=== PATIENT | male | born 1945 | race Caucasian/White ===

== ENCOUNTER 2020-04-24 09:09 | Emergency (ER) | payer BC, MEDICARE ==
[~2020-04-24] VITALS: Ht 180.3 cm; Wt 117.9 kg
--- NOTE | 2020-04-24 09:57 | NUR ---
PT EFFIE REPORTS NAUSEA IS IMPROVING A LITTLE, REGLAN 10MG IV GIVEN PER ORDER. EKG COMPLETE BY ELSA Gaspar
[2020-04-24] MEDS ORDERED: MECLIZINE HCL25 MG PO (11:51)
--- NOTE | 2020-04-24 12:30 | EKG ---
[facility] [address] [facility] [address] [place] [address] Signed Normal sinus rhythm Normal ECG No previous ECGs available Confirmed by CHEO JENKINS MD ([id number]) on 04/24/2020 12:30:37 PM Electronically Signed By: CHEO JENKINS MD 04/24/20 1230 PATIENT NAME: VICENTA COLLINS Electrocardiogram DATE OF : 41 PHYSICIAN: CHEO JENKINS MD REPORT #: [id number] REPORT IS CONFIDENTIAL AND NOT TO BE RELEASED WITHOUT AUTHORIZATION
[2020-04-24] MEDS ORDERED: TENORMIN25 MG PO (16:19)
[2020-04-24] MEDS ORDERED: GLYBURIDE5 MG PO (16:19)
[2020-04-24] MEDS ORDERED: LISINOPRIL20 MG PO (16:20)
[2020-04-24] MEDS ORDERED: METFORMIN HCL1000 MG PO (16:20)
[2020-04-24] MEDS ORDERED: JANUVIA50 MG PO (16:21)
[2020-04-24] MEDS ORDERED: BAYER CHEWABLE81 MG PO (16:22)
== END 2020-04-24 12:02 | disposition home or self-care (01) ==
LOC: ED 09:09
DX: H81.12 Benign paroxysmal vertigo, left ear (principal); I10 Essential (primary) hypertension; E11.9 Type 2 diabetes mellitus without complications; Z87.891 Personal history of nicotine dependence
CPT/HCPCS: 93005; 93010; 96374; 99284-25; J2765

== ENCOUNTER 2024-12-22 17:59 | Emergency (ER) | payer OTHER, MEDICARE ==
[~2024-12-22] VITALS: Ht 180.3 cm; Wt 95.6 kg
[~2024-12-22 17:59] MED LIST: BAYER CHEWABLE81 MG PO; GLYBURIDE5 MG PO; JANUVIA50 MG PO; LISINOPRIL20 MG PO; MECLIZINE HCL25 MG PO; METFORMIN HCL1000 MG PO; TENORMIN25 MG PO
[2024-12-22] MEDS ORDERED: SILVER SULFADIAZINE 400 GM HOME.PACK TOP ONE (19:15)
[2024-12-22] MEDS ORDERED: TRAMADOL HCL50 MG PO (20:08)
[2024-12-22] MEDS ORDERED: NYSTATIN15 GM TOP (20:11)
[2024-12-22] MEDS ORDERED: TRAMADOL HCL 50 MG HOME.PACK PO ONE (20:15)
[2024-12-22 20:28] VITALS: BP 131/76
== END 2024-12-22 20:28 | disposition home or self-care (01) ==
LOC: ED 17:59
DX: T24.219A Burn of second degree of unspecified thigh, initial encounter (principal); I10 Essential (primary) hypertension; Z87.891 Personal history of nicotine dependence; E11.9 Type 2 diabetes mellitus without complications
CPT/HCPCS: 16020; 99283; A9270

== ENCOUNTER 2025-05-15 08:28 | Inpatient (IN) | payer OTHER, MEDICARE ==
[~2025-05-15] VITALS: Ht 180.3 cm; Wt 103.0 kg
[~2025-05-15 08:28] MED LIST changes: +NYSTATIN15 GM TOP; +TRAMADOL HCL50 MG PO
[2025-05-15 08:55] LABS: BASOPHILS 0.6 % (0.2-1.2); EOSINOPHILS 0.1 % (0.8-7.0); LYMPHOCYTES 3.6 % (21.8-53.1); MCH 30.5 PG (25.7-32.2); MCHC 34.1 g/dL (32.3-36.5); MCV 89.3 fL (79.0-92.2); MONOCYTES 11.1 % (5.3-12.2); NEUTROPHILS 84.0 % (34.0-67.9); RBC 5.25 M/uL (4.63-6.08)
[2025-05-15] MEDS ORDERED: SODIUM CHLORIDE 0.9% 1,000 ML IV ONE (09:00)
[2025-05-15 09:10] LABS: ALT (SGPT) 33.0 U/L (14-59); AST (SGOT) 35.0 U/L (15-37); GLOMERULAR FILTRATION RATE,EST 60.0 mL/min (>60); PROTEIN, TOTAL 7.3 g/dL (6.4-8.2); UREA NITROGEN 15.0 mg/dL (7-18)
[2025-05-15 10:08] LABS: CORONAVIRUS COVID-19 AG POSITIVE (NEGATIVE)
[2025-05-15 11:24] LABS: BLOOD/HGB, URINE LARGE (Negative); KETONE, URINE SMALL (Negative); LEUK ESTERASE, URINE NEGATIVE (negative); NITRITE, URINE NEGATIVE (negative)
[2025-05-15 11:45] LABS: BACTERIA, URINE NONE SEEN /hpf (negative); CASTS, URINE NONE SEEN \\lpf; CRYSTALS, URINE URIC ACID 3+ (0-1+); EPITHELIAL CELLS, URINE 0 /lpf (0-1+); REFLEX CULTURE, URINE No (No)
[2025-05-15] MEDS ORDERED: POLYETHYLENE GLYCOL 3350 1 PACKET PO SCH (12:53)
[2025-05-15 14:30] VITALS: BP 130/75
--- NOTE | 2025-05-15 14:46 | NUR ---
PATIENT ADMITTED TO MED SURG. PATIENT IS 98% ON ROOM AIR, ENDORSES FEELING WEAK FOR THE PAST WEEK. PATIENT SAID THAT HE LIVES WHERE THERE IS A FLIGHT OF STAIRS AND THIS IS DIFFICULT FOR HIM, BUT THAT HE WAS MOVING SOON. PATIENT DENIES NAUSEA, IS HAVING SNACKS AND ICE WATER. VITALS ARE STABLE, PATIENT IS A/O AND ABLE TO USE CALL LIGHT. TELE WITH OXIMETER IS ON. NO OTHER NEEDS AT THIS TIME.
[2025-05-15 15:00] VITALS: BP 130/75
--- NOTE | 2025-05-15 16:08 | NUR ---
Patient awake, alert and oriented x3, no acute distress. CPOX in place, sp02 98% on room air, respirations non labored. Patient denies shorness of breath. Per patient, he has been having a dry cough, weakness and diarrhea for several days now. Bed alarm intact, call light within reach. Fresh water provided to patient.
[2025-05-15] MEDS ORDERED: IBLOOD GLUCOSE TEST STRIP 1 EA TEST VI SCH (17:00)
[2025-05-15] MEDS ORDERED: INSULIN LISPRO 100 UNIT/ML ML SUB-Q SCH (17:00)
[2025-05-15 17:43] VITALS: BP 150/80
[2025-05-15 17:47] VITALS: BP 150/80
--- NOTE | 2025-05-15 17:47 | NUR ---
Patient awake eating dinner, no acute distress. Vital signs stable, respirations non labored. Personal supplies and call light within reach.
--- NOTE | 2025-05-15 19:37 | NUR ---
REPORT RECEIVED FROM DAY SHIFT RN. PT RESTING IN BED. SAFETY PRECAUTIONS MAINTAINED. CALL LIGHT WITHIN REACH. WILL CONTINUE TO MONITOR.
[2025-05-15 20:38] VITALS: BP 123/68
[2025-05-15 20:50] VITALS: BP 123/68
--- NOTE | 2025-05-15 20:50 | NUR ---
PT ASSESSED AND SLIDING SCALE INSULIN GIVEN FOR A BS OF 177. VSS. PT SATING WELL ON RA, TELE READING ST. PT STATED THAT THEY ARE NOT IN ANY PAIN OR DISCOMFORT. ISOLATION PRECAUTIONS MAINTAINED. SAFETY PRECAUTIONS MAINTAINED. CALL LIGHT WITHIN REACH. WILL CONTINUE TO MONITOR.
[2025-05-16] VITALS (11 sets, daily range): BP systolic 93–130; BP diastolic 53–71
[2025-05-16 05:24] LABS: BASOPHILS 0.6 % (0.2-1.2); EOSINOPHILS 0 % (0.8-7.0); LYMPHOCYTES 10.5 % (21.8-53.1); MCH 29.9 PG (25.7-32.2); MCHC 33.5 g/dL (32.3-36.5); MCV 89.4 fL (79.0-92.2); MONOCYTES 16.8 % (5.3-12.2); NEUTROPHILS 71.7 % (34.0-67.9); RBC 4.98 M/uL (4.63-6.08)
[2025-05-16 05:35] LABS: GLOMERULAR FILTRATION RATE,EST 87.0 mL/min (>60); UREA NITROGEN 11.0 mg/dL (7-18)
--- NOTE | 2025-05-16 06:14 | NUR ---
PT WAS AWAKE MOST OF THE SHIFT. VSS. O2 AT 1L NC APPLIED DURING THE SHIFT DUE TO O2 SAT BEING IN THE HIGH 80'S. PT SATING WELL ON O2 AT 1L NC. TELE READING ST. PT USING URINAL AT BEDSIDE, MODERATE OUTPUT NOTED. SAFETY PRECAUTIONS MAINTAINED. CALL LIGHT WITHIN REACH. WILL CONTINUE TO MONITOR.
--- NOTE | 2025-05-16 08:12 | NUR ---
UR CLINICAL REVIEW: MCG-PER MCG REVIEW MEETS INPT FOR COVID 19 WITH NEED FOR SUPPLEMENTAL OXYGEN PER [facility] INPT 05/15/25 @ 1253 ORDER MATCHES REG NO AUTH REQUIRED PER [facility] GUIDELINES. CLINICALS FAXED PER REQUEST DISCHARGE TO HOME WHEN STABLE PENDING PT/OT
[2025-05-16] MEDS ORDERED: PANTOPRAZOLE SODIUM 40 MG TABEC PO SCH (09:00)
--- NOTE | 2025-05-16 09:18 | NUR ---
ALERT AND ORIENTED IN BED. PLAYING ON TABLET WHILE SPEAKING WITH NURSE SO ANSWERS TAKE HIM A BIT OF TIME TO GIVE. DEMOGRAPHICS VERIFIED WITH PATIENT. HIS PCP IS NO LONGER DR. SALAZAR, STATES HE IS STILL SEEN AT [facility] BUT CAN NOT REMEMBER PHYSICIAN'S NAME WHO IS OBTAINING HIS CARE. HE LIVES IN A TRIPLEX WITH A ROOMMATE. STATES HE HAS A FLIGHT OF STAIRS WITH A HANDRAIL TO GET INTO HIS HOME. HE HAS A WALKER, CANE AND SHOWER CHAIR. HE DRIVES AT [place]. HE STATES HE HAS SOME FINANCIAL HARDSHIP AT TIMES BUT HAS FOOD STAMPS AND THEY SEEM TO GET HIM BY. DISCUSSED POTENTIAL NEED FOR HOME HEALTH PT/OT VS. SNF IF NEEDED. DOES NOT DISAGREE TO ANY NEEDS. INFORMED HIM THIS NURSE WILL RETURN TO DISCUSS OPTIONS AFTER PT/OT EVAL HIM.
--- NOTE | 2025-05-16 10:24 | NUR ---
PATIENT REQUESTS SNF PLACEMENT IN [facility] IF BED IS OPEN. SPOKE WITH OLIVIA, PATIENT'S FRIEND, UPDATED HIM. HIS CONCERN IS PATIENT IS HAVING INCREASING WEAKNESS AND HE KNOWS PATIENT DOES NEED MORE HELP. BOTH ARE IN AGREEANCE WITH [facility]. REFERRAL FOR SNF FAXED.
--- NOTE | 2025-05-16 11:13 | NUR ---
Patient assited to chair with physical therapy. Patient demonstrated proper iss use with morning assessment, pt instructed to use hourly. Patient denies sob and or chest pain. Vital signs stable, sp02 93% on room air. Patient reports feeling weak this morning. Encouraged patient to drink lots of fluids, fresh water at bedside. Chair alarm in place.
--- NOTE | 2025-05-16 11:45 | NUR ---
REPORT RECIEVED FROM MARIUM LIU. PATIENT SITTING UP IN HIS CHAIR WATCHING TV. PATIENT WITHOUT ANY NEEDS AT THIS TIME. CALL LIGHT AND PERSONAL BELONGINGS ARE WITHIN REACH.
--- NOTE | 2025-05-16 11:49 | NUR ---
SNF REFERRAL FAXED TO [facility]
[2025-05-16] MEDS ORDERED: PHARMACY RENAL DOSE ADJUSTMENT 1 DOSE MISC PO SCH (12:00)
--- NOTE | 2025-05-16 12:00 | NUR ---
PATIENT BLOOD GLUCOSE IS 211 AND LUNCH TRAY IS PROVIDED.
--- NOTE | 2025-05-16 12:15 | NUR ---
PATIENT MEDICATED PER EMAR. PATIENT ASSISTED TO SITTING UP RIGHT IN HIS CHAIR TO EAT LUNCH. FRESH BEDDING PROVIDED. FRESH ICE WATER PROVIDED. PATIENT WITHOUT FURTHER NEEDS. CALL LIGHT AND PERSONAL BELONGINGS ARE WITHIN REACH.
--- NOTE | 2025-05-16 13:15 | NUR ---
PATIENT TRANSFERED BACK TO BED VIA TWO PERSON ASSIST WITH THE FWW. PATIENT TOLERATED WELL. MOR BAPTISTE IN ROOM OBTAINING VITAL SIGNS. PATIENT WITHOUT FURTHER NEEDS AT THIS TIME. CALL LIGHT AND PERSONAL BELONGINGS ARE WITHIN REACH.
--- NOTE | 2025-05-16 14:37 | NUR ---
PATIENT RESTING IN BED ON HIS RIGHT SIDE WITH HIS EYES CLOSED. EVEN AND UNLABORED RESPIRATIONS NOTED. CALL LIGHT AND PERSONAL BELONGINGS ARE WITHIN REACH.
--- NOTE | 2025-05-16 14:41 | NUR ---
[facility] UNABLE TO ACCEPT COVID POSITIVE PATIENT AT THIS TIME. SNF REFERRAL SENT TO [facility] FOR REVIEW
--- NOTE | 2025-05-16 15:33 | NUR ---
PATIENT RESTING IN BED ON HIS BACK WITH HIS EYES CLOSED, EVEN AND UNLABORED RESPIRATIONS NOTED. CALL LIGHT AND PERSONAL BELONGINGS ARE WITHIN REACH.
--- NOTE | 2025-05-16 15:38 | NUR ---
REFERRAL FAXED TO [facility]
--- NOTE | 2025-05-16 16:33 | NUR ---
UPDATED PATIENT THAT [facility] DOES NOT HAVE A BED. HE IS OK WITH [facility] OR [facility] SINCE THEY ARE NEXT CLOSEST FACILTIES.
--- NOTE | 2025-05-16 17:25 | NUR ---
PATIENT MEDICATED PER EMAR. PATIENT POSITIONED WITH HOB ELEVATED FOR DINNER. URINAL EMPTIED, FRESH ICE WATER PROVIDED. PATIENT WITHOUT FURTHER NEEDS AT THIS TIME. CALL LIGHT AND PERSONAL BELONGINGS ARE WITHIN REACH.
--- NOTE | 2025-05-16 18:04 | EKG ---
[facility] [address] [place], [place] [address] Signed Sinus tachycardia Otherwise normal ECG When compared with ECG of 24-APR-2020 09:54, No significant change was found Confirmed by MARIAM CORDOVA MD ([id number]) on 05/16/2025 6:04:34 PM Electronically Signed By: MARIAM CORDOVA 05/16/25 1804 PATIENT NAME: VICENTA COLLINS Electrocardiogram DATE OF : 41 PHYSICIAN: MARIAM CORDOVA REPORT #: [id number] REPORT IS CONFIDENTIAL AND NOT TO BE RELEASED WITHOUT AUTHORIZATION
--- NOTE | 2025-05-16 18:16 | NUR ---
PATIENT SITTING UP IN BED WATCHING TV. PATIENT WITHOUT ANY NEEDS AT THIS TIME. CALL LIGHT AND PERSONAL BELONGINGS ARE WITHIN REACH.
--- NOTE | 2025-05-16 19:37 | NUR ---
PATIENT IN BED, EYES OPEN, CHEST RISE EVEN AND UNLABORED. CALL LIGHT AND PERSONAL BELONGINGS IN REACH OF PATIENT. REPORT RECEIVED FROM MYA CAUSEY.
--- NOTE | 2025-05-16 20:57 | NUR ---
IT INSTRUCTOR OBTAINED VITALS AND I&O. PT STATES NO NEEDS AT THIS TIME. CALL LIGHT WITHIN REACH.
--- NOTE | 2025-05-16 22:00 | NUR ---
PATIENT IN BEDWITH HOB RAISED, EYES OPEN, CHEST RISE EVEN AND UNLABORED. SCHEDULED MEDICATIONS ADMINISTERED. ASSESMENT COMPLETED. IV NOT PATENT, REMOVED. NEW IV PLACED BY LUCI CAUSEY. PATIENT DENIES CONCERNS AT THIS TIME. CALL LIGHT AND PERSONAL BELONGINGS IN REACH OF PATIENT.
--- NOTE | 2025-05-16 23:54 | NUR ---
PATIENT IN BED, EYES OPEN, CHEST RISE EVEN AND UNLABORED. PATIENT DENIES CONCERNS AT THIS TIME. CALL LIGHT AND PERSONAL BELONGINGS IN REACH OF PATIENT.
[2025-05-17] VITALS (12 sets, daily range): BP systolic 96–113; BP diastolic 52–63
--- NOTE | 2025-05-17 00:09 | NUR ---
PATIENT IN BED, EYES OPEN, CHEST RISE EVEN AND UNLABORED. PATIENT'S OXYGEN SATURATION IS 89%, PATIENT PLACED ON 1 LITER O2 VIA NASAL CANNULA. O2 SATURATION NOW 94%. PATIENT TELE BATTERY REPLACED. CALL LIGHT AND PERSONAL BELONGINGS IN REACH OF PATIENT. PATIENT DENIES CONCERNS AT THIS TIME.
--- NOTE | 2025-05-17 01:51 | NUR ---
PATIENT IN BED, EYES CLOSED, CHEST RISE EVEN AND UNLABORED. ASSESMENT, I AND O, MEWS, AND VITAL SIGNS COMPLETED. PATIENT DENIES CONCERNS AT THIS TIME. CALL LIGHT AND PERSONAL BELONGINGS IN REACH OF PATIENT. PATIENT DENIES CONCERNS AT THIS TIME.
--- NOTE | 2025-05-17 04:20 | NUR ---
PATIENT IN BED WITH EYES CLOSED, CHEST RISE EVEN AND UNLABORED. CALL LIGHT AND PERSONAL BELONGINGS IN REACH OF PATIENT. NO APPARENT NEEDS NOTED AT THIS TIME.
--- NOTE | 2025-05-17 05:48 | NUR ---
PATIENT IN BED, EYES OPEN, CHEST RISE EVEN AND UNLABORED. VITAL SIGNS AND MEWS COMPLETED. PATIENT DENIES CONCERNS AT THIS TIME. CALL LIGHT AND PERSONAL BELONGINGS IN REACH OF PATIENT. CPOX AND TELE IN PLACE.
--- NOTE | 2025-05-17 07:25 | NUR ---
REPORT RECEIVED FROM CLINICAL THERAPIST RN JOHN. PATIENT IS LYING IN BED WITH EYES CLOSED AND RESPIRATIONS ARE EVEN AND UNLABORED. PATIENT WITH 1L NC IN PLACE WITH THE CPOX AT BEDSIDE. CALL LIGHT AND PERSONAL BELONGINGS ARE WITHIN REACH.
--- NOTE | 2025-05-17 07:57 | NUR ---
PATIENT IN BED AT THIS TIME. SURGICAL SERVICES MANAGER CHARTED BLOOD SUGAR AND HOURLY ROUNDS. CALL LIGHT WITHIN REACH, NO FURTHER NEEDS.
--- NOTE | 2025-05-17 08:17 | NUR ---
MED REC COMPLETE
--- NOTE | 2025-05-17 08:30 | NUR ---
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
--- NOTE | 2025-05-17 08:53 | NUR ---
MD GAVE VERBAL ORDER TO SENIOR SALES DIRECTOR TO CONTINUE WITH ATENOLOL AND LISINOPRIL ADMINISTRATION WITH MOST RECENT VITAL SIGNS.
--- NOTE | 2025-05-17 09:30 | NUR ---
PATIENT IS LYING IN BED WITH HOB ELEVATED. PATIENT WITH EYES OPEN AND RESPIRATIONS ARE EVEN AND UNLABORED. VITAL SIGNS AND INTAKE AND OUTPUT VALUES TAKEN AND DOCUMENTED IN THE CHART. BLOOD PRESSURE IS LOW. MARIUM OVALLES IS VERIFYING WITH TO CONTINUE WITH ATENOLOL AND LISINIPRIL ADMINISTRATION. PATIENT STATED NO FURTHER NEEDS AT THIS TIME. CALL LIGHT AND PERSONAL BELONGINGS ARE WITHIN REACH.
--- NOTE | 2025-05-17 09:33 | NUR ---
GAVE MARIUM OVALLES VERBAL ORDER TO CONTINUE MEDICATION ADMINISTRATION. THIS RN ADMINITERED MEDICATIONS AT THIS TIME.
--- NOTE | 2025-05-17 10:06 | NUR ---
PT LAYING IN BED WITH EYES CLOSED; RR EVEN AND UNLABORED. CALL LIGHT AND PERSONAL BELONGINGS ARE WITHIN REACH.
--- NOTE | 2025-05-17 11:10 | NUR ---
PATIENT IS LYING IN BED WITH EYES CLOSED AND RESPIRATIONS ARE EVEN AND UNLABORED. PATIENT REMAINS ON ROOM AIR. CALL LIGHT AND PERSONAL BELONGINGS ARE WITHIN REACH.
--- NOTE | 2025-05-17 11:29 | NUR ---
UPDATES SENT TO [facility] AND [facility].
--- NOTE | 2025-05-17 11:44 | NUR ---
PT NOT AVAILABLE FOR VISIT. PROVIDED PRAYER.
--- NOTE | 2025-05-17 11:53 | NUR ---
PATIENT IN BED AT THIS TIME. CUPOLA TAPPER CHARTED VITALS AND I&O'S. CALL LIGHT WIHTIN REACH, NO FURTHER NEEDS.
--- NOTE | 2025-05-17 12:13 | NUR ---
PATIENT IS LYING IN BED WITH HOB ELEVATED. PATIENT WITH EYES OPEN AND RESPIRATIONS ARE EVEN AND UNLABORED. MARIUM OVALLES IS IN THE ROOM AT THIS TIME. CALL LIGHT AND PERSONAL BELONGINGS ARE WITHIN REACH.
--- NOTE | 2025-05-17 12:36 | NUR ---
PATIENT LYING IN BED, KNITTER WIRE MESH'Hafsa JUAREZ CHECKED BLOOD SUGAR. PATIENT LEFT WITH CALL LIGHT CLOSE BY.
--- NOTE | 2025-05-17 13:11 | NUR ---
PT IS SITTING UP IN BED, HAS JUST FINISHED LUNCH. LUNCH TRAY REMOVED, ICE BROUGHT PER PT REQUEST. PT DENIES ANY FURTHER NEEDS AT THIS TIME. CALL LIGHT AND PERSONAL BELONGINGS ARE WITHIN REACH.
--- NOTE | 2025-05-17 13:49 | NUR ---
PATIENT IN BED AT THIS TIME. ESOL TEACHER ASSISTANT CHARTED VITALS AND I&O'S. ESOL TEACHER ASSISTANT OFFERED PATIENT BED BATH AT 1530, PATIENT AGREED. CALL LIGHT WITHIN REACH, NO FURTHER NEEDS.
--- NOTE | 2025-05-17 14:07 | NUR ---
PT IS LAYING IN BED WITH EYES CLOSED, RR IS EVEN AND UNLABORED. CALL LIGHT AND PERSONAL BELONGINGS ARE WITHIN REACH.
--- NOTE | 2025-05-17 14:15 | NUR ---
CHART FAXED TO [facility]. CB SALES DENIED CHART DUE TO NOT HAVING ANY PRIVATE ROOMS AVAILABLE.
--- NOTE | 2025-05-17 14:15 | NUR ---
LPAR DENIED PATIENT DUE TO NO PRIVATE ROOMS.
--- NOTE | 2025-05-17 15:19 | NUR ---
PATIENT IS SITTING IN THE CHAIR WITH BILATERAL LOWER EXTREMITIES ELEVATED. PHYSICAL THERAPY FINISHED WORKING WITH THE PATIENT AT THIS TIME. MOR BORGES AND MOR BURLESON ARE ASSISTING PATIENT WITH A BED BATH AND PLACING A MALE PUREWICK AT THIS TIME. PATIENT WITH NO COMPLAINTS OF PAIN. PATIENT IS ON ROOM AIR AND LUNG SOUNDS ARE DIMINISHED THROUGHOUT. IV SITE FLUSHED WITH 10 ML NORMAL SALINE AND IS SALINE LOCKED. IV DRESSING IS CLEAN, DRY, AND INTACT. CARDIAC WITH NORMAL S1 AND S2 ON AUSCULTATION. PATIENT AND FILTER TIP CATCHER'S STATED NO FURTHER NEEDS AT THIS TIME. CALL LIGHT AND PERSONAL BELONGINGS ARE WITHIN REACH.
--- NOTE | 2025-05-17 15:33 | NUR ---
MACHINE PAINT MIXER'S BENJY AND JONY ASSISTED PATIENT WITH CHANGING SOILED DIAPER, PROVIDED MATHEW CARE AND ATTACHED EXTERNAL CATHETER. CALL LIGHT LEFT WITHIN REACH AND PATIENT DID NOT REPORT NEEDING ASSISTANCE.
--- NOTE | 2025-05-17 16:34 | NUR ---
PT SITTING UP IN CHAIR, WITH BILATERAL LOWER EXTREMITIES ELEVATED. WAFFLE MAT PLACED ON BED AND AIRED UP. PT EDUCATED ON SITTING IN THE CHAIR FOR DINNER; PT EXPRESSED UNDERSTANDING. CALL LIGHT AND PERSONAL BELONGINGS ARE WITHIN REACH.
--- NOTE | 2025-05-17 16:57 | NUR ---
PATIENT LEFT ON CHAIR, SHIP CEILER'S ANN CHARTED VITALS, CALL LIGHT WITHIN REACH, NO FURTHER NEEDS
--- NOTE | 2025-05-17 18:09 | NUR ---
PATIENT IS LYING IN BED WITH HOB ELEVATED. PATIENT WITH EYES OPEN AND RESPIRATIONS ARE EVEN AND UNLABORED. PATIENT REPORTED NO NEEDS AT THIS TIME. CALL LIGHT AND PERSONAL BELONGINGS ARE WITHIN REACH.
--- NOTE | 2025-05-17 19:47 | NUR ---
REPORT RECEIVED FROM NGUYEN CAUSEY. PATIENT IN BED, EYES OPEN, CHEST RISE EVEN AND UNALBORED. CALL LIGHT AND PERSONAL BELONGINGS IN REACH OF PATIENT. PATIENT DENIES CONCERNS AT THIS TIME.
--- NOTE | 2025-05-17 20:59 | NUR ---
PATIENT LAYING IN BED. PATIENTS VITAL SIGNS AND BG WAS DONE. PATIENTS CALL LIGHT IS WITHIN REACH AND NO FURTHER NEEDS AT THIS TIME.
--- NOTE | 2025-05-17 21:33 | NUR ---
PATIENT IN BED, EYES OPEN, CHEST RISE EVEN AND UNLABORED. CALL LIGHT AND PERSONAL BELONGINGS IN REACH OF PATIENT. SCHEDULED MEDICAITONS ADMINISTERED. ASSESMENT COMPLETE. ON ENTRY TO ROOM PATIENT REPORTS THE BED IS WET. PURE WICK IS NOT WORKING. PATIENT REPORTS HE IS ABLE TO FEEL THE URGE TO URINATE AND FEEL IF THE BED IS WET. PUREWICK REMOVED. PATIENT TEACHING PROVIDED ON SKIN BREAKDOWN THAT CAN OCCUR WITH PROLONGED CONTACT OF SKING TO URINE AND FECES. PATIENT VERBALIZED UNDERSTANDING AND AGREES TO CALL IF HIS BED BECOMES SOILED. URINAL AT BEDSIDE. PATIENT DENIES FURTHER CONCNERS AT THIS TIME. CALL LIGHT AND PERSONAL BELONGINGS IN REACH OF PATIENT.
[2025-05-18] VITALS (11 sets, daily range): BP systolic 98–112; BP diastolic 55–68
--- NOTE | 2025-05-18 00:13 | NUR ---
PATIENT IN BED, EYES CLOSED, CHEST RISE EVEN AND UNLABORED. CALL LIGHT AND PERSONAL BELONGINGS IN REACH OF PATIENT. NO APPARENT NEEDS NOTED AT THIS TIME.
--- NOTE | 2025-05-18 01:37 | NUR ---
PIANO MOVER OBTAINED VITALS AND I&O. PT STATES NO NEEDS AT THIS TIME. CALL LIGHT WITHIN REACH.
--- NOTE | 2025-05-18 02:26 | NUR ---
PATIENT IN BED, EYES OPEN, CHEST RISE EVEN AND UNLABORED. TELE BETTERY REPLACED. PATIENT PROVIDED WITH WARM BLANKET AT HIS REQUEST. PATIENT DENIES FURTHER CONCERNS AT THIS TIME. CALL LIGHT AND PERSONAL BELONGINGS IN REACH OF PATIENT.
--- NOTE | 2025-05-18 04:12 | NUR ---
PATIENT IN BED, EYES CLOSED, CHEST RISE EVEN AND UNLABORED. CALL LIGHT AND PERSONAL BELONGINGS IN REACH OF PATIENT. NO APPARENT NEEDS NOTED AT THIS TIME.
--- NOTE | 2025-05-18 06:39 | NUR ---
PATIENT IN BED, EYES OPEN, CHEST RISE EVEN AND UNLABORED. PATIENT DENIES CONCERNS AT THIS TIME. CALL LIGHT AND PERSONAL BELONGINGS IN REACH OF PATIENT.
--- NOTE | 2025-05-18 07:07 | NUR ---
RECIEVED REPORT FROM RN'S JONNIE. PT IS RESTING IN BED ON RIGHT SIDE. RR EVEN AND UNLABORED, CALL LIGHT AND PERSONAL BELONGINGS ARE WITHIN REACH.
--- NOTE | 2025-05-18 08:20 | NUR ---
[facility] DENIED A BED.
--- NOTE | 2025-05-18 08:45 | NUR ---
PT IS LAYING IN BED, ON PHONE. RR EVEN AND UNLABORED. CALL LIGHT AND PERSONAL BELONGINGS ARE WITHIN REACH.
--- NOTE | 2025-05-18 09:38 | NUR ---
0800 AND 0900 MEDICATIONS ADMINISTERED PER THE EMAR. PHYSICAL THERAPY, CASE MANAGEMENT, AND ARE IN THE ROOM AT THIS TIME. GAVE VERBRAL ORDER TO CONTINUE WITH 0900 BLOOD PRESSURE MEDICATIONS WHEN UPDATED ON THE BLOOD PRESSURE AND HEART RATE. PHYSICAL THERAPY CONTINUES TO WORK WITH THE PATIENT. CALL LIGHT AND PERSONAL BELONGINGS ARE WITHIN REACH.
--- NOTE | 2025-05-18 10:08 | NUR ---
INTO TO SEE PATIENT. SPOKE WITH HIM ABOUT PLACEMENT LET HIM KNOW WE ARE STILL WORKING ON IT. PATIENT AGREEABLE. WBT AND MFHR TALKING TO THERE ADMINISTRATION AGAIN.
--- NOTE | 2025-05-18 10:25 | NUR ---
OCCUPATIONAL THERAPY IS IN THE ROOM AT THIS TIME. PATIENT IS SITTING IN THE CHAIR WITH BILATERAL LOWER EXTREMITIES ELEVATED. FULL ASSESSMENT COMPLETE AND DOCUMENTED IN THE CHART. PATIENT IS ALERT AND ORIENTED TIMES FOUR. CARDIAC WITH NORMAL S1 AND S2 ON AUSCULTATION. TELEMETRY DISCONTINUED. PATIENT IS ON ROOM AIR AND LUNG SOUNDS ARE DIMINISHED THROUGHOUT. PATIENT WAS ON 1 L NC AT NIGHT. IV SITE FLUSHED WITH 10 ML NORMAL SALINE AND IS SALINE LOCKED. IV DRESSING IS CLEAN, DRY, AND INTACT. PATIENT RATED PAIN 6/10 AND IS REQUESTING SOMETHING IF AVAILABLE. PATIENT STATED NO FURTHER NEEDS AT THIS TIME. CALL LIGHT AND PERSONAL BELONGINGS ARE WITHIN REACH.
--- NOTE | 2025-05-18 11:05 | NUR ---
VISITED DURING SPIRITUAL CARE ROUNDS. PT APPEARED TO BE SLEEPING. DID NOT DISTURB. PROVIDED PRAYER.
--- NOTE | 2025-05-18 11:41 | NUR ---
PATIENT IS IN BED AT THIS TIME, REFUSED TO GET UP IN THE CHAIR, HAND KISS SETTER OFFERED A SHOWER LATER, PATIENT SAID MAYBE, I WILL ASK AGAIN AFTER LUNCH. HAND KISS SETTER CHARTED I&O'S, CALL LIGHT WITH IN REACH AND NOTHING ELSE NEEDED AT THIS TIME.
--- NOTE | 2025-05-18 12:30 | NUR ---
1200 INSULIN ADMINISTERED PER THE EMAR. PATIENT REPORTS PAIN IS BETWEEN A 2 TO 3 OUT OF 10. PATIENT IS NOT REQUESTING ANYTHING FOR PAIN. PATIENT EDUCATED TO CALL IF THEY FEEL HYPOGLYCEMIC. PATIENT EXPRESSED UNDERSTANDING. PATIENT STATED NO FURTHER NEEDS AT THIS TIME. CALL LIGHT AND PERSONAL BELONGINGS ARE WITHIN REACH.
--- NOTE | 2025-05-18 13:17 | NUR ---
PATIENT IS LYING IN BED WITH HOB ELEVATED. PATIENT IS ON ROOM AIR AND ON THEIR PHONE. TERENCE, WITH CASE MANAGEMENT ABOUT TO ENTER THE ROOM. CALL LIGHT AND PERSONAL BELONGINGS ARE WITHIN REACH.
--- NOTE | 2025-05-18 13:22 | NUR ---
PATIENT ACCEPTED TO [facility]. PLAN TO D/C WEDNESDAY.
--- NOTE | 2025-05-18 14:05 | NUR ---
PT LAYING IN BED WITH HOB ELEVATED, EATING SNACK. RR EVEN AND UNLABORED, CALL LIGHT AND PERSONAL BELONGINGS ARE WITHIN REACH.
--- NOTE | 2025-05-18 15:15 | NUR ---
PATIENT IS LYING IN BED WITH HOB ELEVATED. PATIENT WITH EYES OPEN AND RESPIRATIONS ARE EVEN AND UNLABORED. MOR MOYA IS IN THE ROOM AT THIS TIME AND GETTING VITAL SIGNS. CALL LIGHT AND PERSONAL BELONGINGS ARE WITHIN REACH.
--- NOTE | 2025-05-18 16:18 | NUR ---
PT IS LAYING IN BED WITH HEAD ELEVATED, HAS JUST FINISHED EATING SANDWHICH. IV SITE IS CLEAN, DRY AND INTACT. PT DENIES ANY PAIN AT THIS TIME. LUNGS WERE CLEAR IN THE UPPER LOBES AND DIMINISHED IN THE LOWER BASES BILATERALLY. PT DENIES ANY NEEDS AT THIS TIME. CALL LIGHT AND PERSONAL BELONGINGS ARE WITHIN REACH.
--- NOTE | 2025-05-18 16:50 | NUR ---
PT SITTING UP IN BED. PLUGGED IPAD IN TO CHARGE, GOT PT FRESH ICE WATER AND DUE TO A REPORT OF NOT EATING LUNCH- GOT PT SANDWICH FROM [facility]- PT DIET ALLOWED AND SPOKE TO RN. CLEANED UP ROOM AND HAD SEVERAL CONVERSATIONS WITH PT. GOT PT WARM WASH CLOTH FOR FACE AND HANDS. EMPTIED URINAL AND CLEANED UP ROOM. PT REPORTS NEEDING NOTHIN [place] AT THIS TIME. CALL LIGHT WITHIN REACH OF PT AND BED ALARM ON.
--- NOTE | 2025-05-18 18:16 | NUR ---
PATIENT IS LYING IN BED WITH EYES OPEN AND RESPIRATIONS ARE EVEN AND UNLABORED. PATIENT STATED NO WHEN ASKED ABOUT ANY NEEDS AT THIS TIME. CALL LIGHT AND PERSONAL BELONGINGS ARE WITHIN REACH.
--- NOTE | 2025-05-18 19:50 | NUR ---
REPORT RECEIVED FROM NGUYEN CAUSEY. PATIENT IN BED, EYES OPEN, CHEST RISE EVEN AND UNLABORED. PATIENT DENIES CONCERNS AT THIS TIME. CALL LIGHT AND PERSONAL BELONGINGS IN REACH OF PATIENT.
--- NOTE | 2025-05-18 21:23 | NUR ---
SOFTWARE INSTALLATION ENGINEER OBTAINED VITALS AND I&O. BLOOD SUGAR OBTAINED. PT ICE WATER REFILLED. PT STATES NO FURTHER NEEDS AT THIS TIME. CALL LIGHT WITHIN REACH AND BED ALARM ON.
[2025-05-19] VITALS (10 sets, daily range): BP systolic 107–129; BP diastolic 56–73
--- NOTE | 2025-05-19 00:12 | NUR ---
PATIENT IN BED, EYES OPEN, CHEST RISE EVEN AND UNLABORED. CALL LIGHT AND PERSONAL BELONGINGS IN REACH OF PATIENT. SCHEDULED MEDICATIONS ADMINISTERED. PATIENT PROVIDED WITH FRESH DRINK AND SUGAR FREE PUDDING AT HIS REQUEST. ASSESMENT COMPLETED. PATIENT DENIES CONCERNS AT THIS TIME.
--- NOTE | 2025-05-19 00:32 | NUR ---
PATIENT IN BED, EYES CLOSED, CHEST RISE EVEN AND UNLABORED. CALL LIGHT PERSONAL BELONGINGS IN REACH OF PATIENT. CPOX IN PLACE. NO APPARENT NEEDS NOTED AT THIS TIME.
--- NOTE | 2025-05-19 02:35 | NUR ---
PATIENT IN BED, EYES CLOSED, CHEST RISE EVEN AND UNLABORED. NO APPARENT NEEDS NOTED AT THIS TIME CPOX IN PLACE, BED ALARM ON
--- NOTE | 2025-05-19 04:27 | NUR ---
PATIENT IN BED, EYES CLOSED, CHEST RISE EVEN AND UNLABORED. CALL LIGHT AND PERSONAL BELONGINGS IN REACH OF PATIENT. CPOX IN PLACE. NO APPARENT NEEDS NOTED AT THIS TIME.
--- NOTE | 2025-05-19 06:08 | NUR ---
NUTRITION PROGRAM INSTRUCTOR OBTAINED VITALS AND I&O. PT STATES NO NEEDS AT THIS TIME. CALL LIGHT WITHIN REACH.
--- NOTE | 2025-05-19 06:18 | NUR ---
PATIENT IN BED, EYES OPEN, CHEST RISE EVEN AND UNLABORED. ASSESMENT COMPLETED. PATIENT DENIES CONCERNS AT THIS TIME. CALL LIGHT AND PERSONAL BELONGINGS IN REACH OF PATIENT.
--- NOTE | 2025-05-19 07:18 | NUR ---
RECIEVED REPORT FROM RN'S JONNIE. PT LAYING IN BED WITH EYES CLOSED. RR EVEN AND UNLABORED AND CPOX AT BEDSIDE. O2 SATS ARE IN THE LOW 90'S ON ROOM AIR. CALL LIGHT AND PERSONAL BELONGINGS ARE WITHIN REACH.
--- NOTE | 2025-05-19 07:59 | NUR ---
PATIENT IN BED AT THIS TIME. DELICATESSEN GOODS STOCK CLERK CHARTED HOURLY ROUNDS AND BLOOD SUGAR. DELICATESSEN GOODS STOCK CLERK ASSISTED PATIENT TO CHAIR FROM BED, CALL LIGHT WITHIN REACH, NO FURTHER NEEDS.
--- NOTE | 2025-05-19 08:34 | NUR ---
PATIENT IS SITTING UPRIGHT IN THE CHAIR. 0800 AND 0900 MEDICATION ADMINISTERED PER THE EMAR. VITAL SIGNS AND INTAKE AND OUTPUT TAKEN AND DOCUMENTED IN THE CHART. CPOX AT BEDSIDE. BED LINENS CHANGED AT THIS TIME. PATIENT STATED NO FURTHER NEEDS AT THIS TIME. CALL LIGHT AND PERSONAL BELONGINGS ARE WITHIN REACH.
--- NOTE | 2025-05-19 09:20 | NUR ---
PT SITTING UP IN CHAIR WATCHING TV. RR EVEN AND UNLABORED. CALL LIGHT AND PERSONAL BELONGINGS WITHIN REACH.
--- NOTE | 2025-05-19 10:44 | NUR ---
PATIENT IN CHAIR AT THIS TIME. BUILDING DRAFTING OFFICER CHARTED HOURLY ROUNDS AND GOT PATIENT FRESH ICE WATER. CALL LIGHT WITHIN REACH, NO FURTHER NEEDS AT THIS TIME.
--- NOTE | 2025-05-19 10:50 | NUR ---
PATIENT IS SITTING IN THE CHAIR WITH BILATERAL LOWER EXTREMITIES ELEVATED. PATIENT WITH EYES OPEN AND RESPIRATIONS ARE EVEN AND UNLABORED. PATIENT WITH PT AND OT ORDERED. PATIENT IS ALERT AND ORIENTED TIMES FOUR. PATIENT IS ON ROOM AIR WITH THE CPOX. LUNG SOUNDS ARE CLEAR THROUGHOUT. IV FLUSHED WITH 10 ML NORMAL SALINE AND IS SALINE LOCKED. IV DRESSING IS CLEAN, DRY, AND INTACT. PATIENT STATED NO FURTHER NEEDS AT THIS TIME. CALL LIGHT AND PERSONAL BELONGINGS ARE WITHIN REACH.
--- NOTE | 2025-05-19 11:13 | NUR ---
PT LAYING IN BED WITH EYES CLOSED. RR EVEN AND UNLABORED. CALL LIGHT AND PERSONAL BELONGINGS ARE WITHIN REACH.
--- NOTE | 2025-05-19 11:15 | NUR ---
PT SITTING UP IN CHAIR, ON PHONE. RR EVEN AND UNLABORED. CALL LIGHT AND PERSONAL BELONGINGS ARE WITHIN REACH.
--- NOTE | 2025-05-19 12:00 | NUR ---
PATIENT IN BED AT THIS TIME. EARLY CHILDHOOD EDUCATION SPECIALIST CHARTED HOURLY ROUNDS AND BLOOD SUGAR. CALL LIGHT WITHIN REACH, NO FURTHER NEEDS AT THIS TIME.
--- NOTE | 2025-05-19 13:00 | NUR ---
PATIENT IS SITTING UPRIGHT IN THE CHAIR WITH EYES OPEN AND RESPIRATIONS ARE EVEN AND UNLABORED. PATIENT WITH LUNCH TRAY SET UP IN FRONT OF THEM. PATIENT IS ON HIS PHONE. CALL LIGHT AND PERSONAL BELONGINGS ARE WITHIN REACH.
--- NOTE | 2025-05-19 13:49 | NUR ---
PATIENT IN BED AT THIS TIME. EDUCATIONAL RESOURCE CENTER TEACHER ASSISTED PATIENT BACK TO BED FROM CHAIR. EDUCATIONAL RESOURCE CENTER TEACHER CHARTED VITALS AND I&O'S. CALL LIGHT WITHIN REACH, NO FURTHER NEEDS.
--- NOTE | 2025-05-19 14:15 | NUR ---
PT LAYING IN BED TALKING ON PHONE. RR EVEN AND UNLABORED. CALL LIGHT AND PERSONAL BELONGINGS ARE WITHIN REACH.
--- NOTE | 2025-05-19 15:27 | NUR ---
PATIENT IS LYING IN BED WITH EYES OPEN AND RESPIRATIONS ARE EVEN AND UNLABORED. PATIENT IS LOOKING ON HIS PHONE. PATIENT REMAINS ON ROOM AIR WITH THE CPOX AT BEDSIDE. CALL LIGHT AND PERSONAL BELONGINGS ARE WITHIN REACH.
--- NOTE | 2025-05-19 16:04 | NUR ---
PATIENT IS LYING IN BED WITH EYES OPEN AND RESPIRATIONS ARE EVEN AND UNLABORED. PATIENT IS LOOKING ON A TABLET. PATIENT IS ALERT AND ORIENTED TIMES FOUR. PATIENT WITH NO COMPLAINTS OF PAIN. PATIENT IS ON ROOM AIR WITH THE CPOX AT BEDSIDE. LUNG SOUNDS ARE DIMINISHED THROUGHOUT. IV SITE IS SALINE LOCKED. IV DRESSING IS CLEAN, DRY, AND INTACT. PATIENT STATED NO FURTHER NEEDS AT THIS TIME. CALL LIGHT AND PERSONAL BELONGINGS ARE WITHIN REACH.
--- NOTE | 2025-05-19 16:52 | NUR ---
PATIENT IN BED AT THIS TIME. DRIVER MANAGER CHARTED HOURLY ROUNDS AND BLOOD SUGAR. CALL LIGHT WITHIN REACH, NO FURTHER NEEDS.
[2025-05-19] MEDS ORDERED: GLUCAGON,HUMAN RECOMBINANT 1 MG/ML VIAL SUB-Q PRN (17:00)
[2025-05-19] MEDS ORDERED: DEXTROSE 50% 50 ML SYR IV PRN ×2 (17:00)
[2025-05-19] MEDS ORDERED: IBLOOD GLUCOSE TEST STRIP 1 EA TEST XX PRN (17:00)
[2025-05-19] MEDS ORDERED: DEXTROSE 5% 1,000 ML IV PRN (17:00)
--- NOTE | 2025-05-19 18:27 | NUR ---
PATIENT IS LYING IN BED WITH EYES OPEN AND RESPIRATIONS ARE EVEN AND UNLABORED. PATIENT IS ON HIS PHONE. CALL LIGHT AND PERSONAL BELONGINGS ARE WITHIN REACH.
--- NOTE | 2025-05-19 18:43 | NUR ---
MOR BURLESON AND JONY CHARTED PATIENTS I&O'S. PATIENT LEFT WITH CALL LIGHT WITHIN REACH AND IN BED.
--- NOTE | 2025-05-19 19:15 | NUR ---
REPORT RECIEVED FROM MARIUM GIBBS. PATIENT RESTING IN BED ON HIS RIGHT SIDE. PATIENT WITHOUT ANY NEEDS AT THIS TIME. CALL LIGHT AND PERSONAL BELONGINGS ARE WITHIN REACH.
--- NOTE | 2025-05-19 20:51 | NUR ---
PATIENT RESTING IN BED, DENIES ANY PAIN AT THIS TIME. PATIENT CBG CHECKED AND WAS 197. PATIENT DENIES ANY FURTHER NEEDS. CALL LIGHT AND PERSONAL BELONGINGS ARE WITHIN REACH.
--- NOTE | 2025-05-19 21:20 | NUR ---
PATIENT MEDICATED PER EMAR. WARM BLANKETS AND FRESH WATER PROVIDED. PATIENT WITHOUT FURTHER NEEDS AT THIS TIME. CALL LIGHT AND PERSONAL BELONGINGS ARE WITHIN REACH. CPOX AT BEDSIDE.
--- NOTE | 2025-05-19 23:15 | NUR ---
PATIENT RESTING IN BED WITH HIS EYES CLOSED. EVEN AND UNLABORED RESPIRATIONS NOTED. CALL LIGHT AND PERSONAL BELONGINGS ARE WITHIN REACH.
[2025-05-20] VITALS (11 sets, daily range): BP systolic 105–140; BP diastolic 43–74
--- NOTE | 2025-05-20 | NUR ---
PATIENT CALLED REQUESTING TO TAKE HIS SCD'S OFF. THIS RN IN ROOM TO ASSIST PATIENT. PATIENT WITHOUT FURTHER NEEDS AT THIS TIME. CALL LIGHT AND PERSONAL BELONGINGS ARE WITHIN REACH.
--- NOTE | 2025-05-20 01:32 | NUR ---
PATIENT RESTING IN BED ON HIS RIGHT SIDE. EVEN AND UNLABORED RESPIRATIONS NOTED. PATIENT IS 95% ON ROOM AIR, CPOX AT BEDSIDE. CALL LIGHT AND PERSONAL BELONGINGS ARE WITHIN REACH.
--- NOTE | 2025-05-20 02:30 | NUR ---
PATIENT RESTING IN BED WITH HIS EYES CLOSED. EVEN AND UNLABORED RESPIRATIONS NOTED. CALL LIGHT AND PERSONAL BELONGINGS ARE WITHIN REACH. CPOX AT BEDSIDE.
--- NOTE | 2025-05-20 04:01 | NUR ---
PATIENT RESTING IN BED ON HIS BACK WITH HIS EYES CLOSED. EVEN AND UNLABORED RESPIRATIONS NOTED. CPOX AT BEDSIDE. PATIENT IS 96% ON ROOM AIR. CALL LIGHT AND PERSONAL BELONGINGS ARE WITHIN REACH.
--- NOTE | 2025-05-20 07:03 | NUR ---
REPORT RECEIVED FROM HAND UMBRELLA TIPPER RN MYA. PATIENT IS ON ROOM AIR WITH THE CPOX AT BEDSIDE. PATIENT WITH EYES CLOSED AND RESPIRATIONS ARE EVEN AND UNLABORED. CALL LIGHT AND PERSONAL BELONGINGS ARE WITHIN REACH.
--- NOTE | 2025-05-20 08:35 | NUR ---
PATIENT IS LYING IN BED WITH EYES OPEN AND RESPIRATIONS ARE EVEN AND UNLABORED. VITAL SIGNS TAKEN AND DOCUMENTED IN THE CHART. 0800 AND 0900 MEDICATIONS ADMINISTERED PER THE EMAR. FULL ASSESSMENT COMPLETE AND DOCUMENTED IN THE CHART. PATIENT IS ALERT AND ORIENTED TIMES FOUR. CARDIAC WITH NORMAL S1 AND S2 ON AUSCULTATION. PATIENT LAST BM WAS 05/15/25. PATIENT REPORTS NOT FEELING CONSTIPATED, PAINFUL, OR FIRM. PATIENT WITH NO COMPLATINS OF PAIN. PATIENT REPORTS TINGLING IN BLE AND THAT THEY MORE SENSITIVE THIS MORNING. PATIENT IS ON ROOM AIR WITH THE CPOX AT BEDSIDE. LUNGS ARE CLEAR IN THE UPPER LOBES AND DIMINISHED IN THE BASES BILATERALLY. IV IS SALINE LOCKED. IV DRESSING IS CLEAN, DRY, AND INTACT. PATIENT IS EATING BREAKFAST AT THIS TIME. PATIENT STATED NO FURTHER NEEDS AT THIS TIME. CALL LIGHT AND PERSONAL BELONGINGS ARE WITHIN REACH.
--- NOTE | 2025-05-20 09:16 | NUR ---
PATIENT IS IN THE BATHROOM AT THIS TIME. MOR MOYA IS IN THE ROOM AND CHANGING THE BEDDING. CALL LIGHT AND PERSONAL BELONGINGS ARE WITHIN REACH.
--- NOTE | 2025-05-20 09:26 | NUR ---
PT HAD A BOWEL MOVEMENT ON THE TOILET. COMPLETED ORAL AND AM CARE IN BATHROOM. AMBULATED WITH 1 PA AND WALKER. ROOM CLEANED, TRASH REMOVED AND GOT PT FRESH ICE WATER. COMPLETE LINEN CHANGE. PT REQUESTED TO BE NAKED, EXCEPT FOR BRIEF. CALL LIGHT WITHIN REACH.
--- NOTE | 2025-05-20 09:39 | NUR ---
PT AMBULATED TO THE BATHROOM. CHANGED PT'S BRIEF. PT HANDLED AMBULATION WELL, NO REPORTED DIZZINESS. GOT PT FRESH ICE WATER AND A NEW FINGER OXIMETER. CALL LIGHT WITH PT IN BED. PT REPORTS NEEDING NOTHING M ORE AT THIS TIME.
--- NOTE | 2025-05-20 10:22 | NUR ---
PATIENT IS LYING IN BED WITH EYES OPEN AND RESPIRATIONS ARE EVEN AND UNLABORED. PATIENT IS ON ROOM AIR AND THE CPOX AT BEDSIDE. CALL LIGHT AND PEROSNAL BELONGINGS ARE WITHIN REACH.
--- NOTE | 2025-05-20 11:11 | NUR ---
PATIENT IS LYING IN BED WITH EYES CLOSED AND RESPIRATIONS ARE EVEN AND UNLABORED. PATIENT IS ON ROOM AIR WITH THE CPOX AT BEDSIDE. CALL LIGHT AND PERSONAL BELONGINGS ARE WITHIN REACH.
--- NOTE | 2025-05-20 13:49 | NUR ---
PATIENT IS SITTING IN THE CHAIR WITH BLE ELEVATED. PATIENT WITH EYES OPEN AND RESPIRATIONS ARE EVEN AND UNLABORED. PATIENT IS ON HIS TABLET. CALL LIGHT AND PERSONAL BELONGINGS ARE WITHIN REACH.
--- NOTE | 2025-05-20 14:15 | NUR ---
PATIENT ASSISTED TO THE BATHROOM AND HAD A BOWEL MOVEMENT. PATIENT THEN ASSISTED BACK TO THE CHAIR AND BLE ARE ELEVATED. VITAL SIGNS AND INTAKE AND OUTPUT VALUES ARE DOCUMENTED IN THE CHART. PATIENT WITH NO COMPLAINTS OF PAIN. IV SITE REMAINS CLEAN, DRY, AND INTACT. PATIENT IS ON ROOM AIR WITH THE CPOX AT BEDSIDE. LUNG SOUNDS ARE CLEAR IN THE UPPER LOBES AND DIMINISHED IN THE BASES BILATERALLY. PATIENT STATED NO FURTHER NEEDS AT THIS TIME. CALL LIGHT AND PERSONAL BELONGINGS ARE WITHIN REACH.
--- NOTE | 2025-05-20 15:30 | NUR ---
PATIENT IS SITTING IN THE CHAIR WITH BILATERAL LOWER EXTREMITIES ELEVATED. PATIENT WITH EYES OPEN AND RESPIRATIONS ARE EVEN AND UNLABORED. CALL LIGHT AND PERSONAL BELONGINGS ARE WITHIN REACH.
--- NOTE | 2025-05-20 16:20 | NUR ---
PATIENT IS SITTING IN THE CHAIR ON ROOM AIR WITH THE CPOX AT BEDSIDE. PATIENT IS REQUESTING TO GET BACK TO BED. THIS RN EDUCATED PATIENT ABOUT COMING BACK IN A FEW MINUTES TO HELP HIM. PATIENT EXPRESSED UNDERSTANDING. CALL LIGHT AND PERSONAL BELONGINGS ARE WITHIN REACH.
--- NOTE | 2025-05-20 16:49 | NUR ---
PATIENT ASSISTED BACK TO BED WITH SBA AND A FWW. PATIENT TOLERATED WELL. PATIENT IS LYING IN BED WITH HOB ELEVATED. CPOX DISCONTINUED. WAFFLE MATTRESS INFLATED. SCD'S ON. PATIENT STATED NO FURTHER NEEDS AT THIS TIME. CALL LIGHT AND PERSONAL BELONGINGS ARE WITHIN REACH.
--- NOTE | 2025-05-20 18:04 | NUR ---
PATIENT IS LYING IN BED WITH HOB ELEVATED. PATIENT WITH EYES OPEN AND RESPIRATIONS ARE EVEN AND UNLABORED. PATIENT IS ON HIS PHONE. CALL LIGHT AND PERSONAL BELONGINGS ARE WITHIN REACH.
--- NOTE | 2025-05-20 18:40 | NUR ---
LINEN CHANGE, AM CARE AND ORAL CARE. PT AMBULATED TO AND BACK TO TOILET. USED WALKER. PT HAS WATER NEAR BED AND CALL LIGHT WITHIN REACH. CHARGED PT'S IPAD. PT REPORTED NEEDING NOTHING MORE AT THIS TIME.
--- NOTE | 2025-05-20 19:00 | NUR ---
REPORT RECIEVED FROM MARIUM GIBBS. PATIENT SITTING UP IN BED WATCHING TV. PATIENT WITHOUT ANY NEEDS AT THIS TIME. CALL LIGHT AND PERSONAL BELONGINGS ARE WITHIN REACH.
--- NOTE | 2025-05-20 20:15 | NUR ---
PATIENT RESTING IN BED AND REQUESTING A SANDWICH. PATIENT WITHOUT FURTHER NEEDS AT THIS TIME. CALL LIGHT AND PERSONAL BELONGINGS ARE WITHIN REACH.
--- NOTE | 2025-05-20 22:08 | NUR ---
PATIENT MEDICATED PER EMAR. PATIENT SITTING UP IN BED WATCHING HIS IPAD. PATIENT ASSESSMENT COMPLETED. PATIENT WITHOUT ANY NEEDS AT THIS TIME. CALL LIGHT AND PERSONAL BELONGINGS ARE WITHIN REACH.
--- NOTE | 2025-05-20 23:56 | NUR ---
PATIENT RESTING IN BED WITH HIS EYES CLOSED. EVEN AND UNLABORED RESPIRATIONS NOTED. CALL LIGHT AND PERSONAL BELONGINGS ARE WITHIN REACH.
--- NOTE | 2025-05-21 01:55 | NUR ---
PATIENT RESTING IN BED ON HER RIGHT SIDE WITH HIS EYES CLOSED. EVEN AND UNLABORED RESPIRATIONS NOTED. CALL LIGHT AND PERSONAL BELONGINGS ARE WITHIN REACH.
--- NOTE | 2025-05-21 04:55 | NUR ---
PATIENT RESTING IN BED AWAKE. FRESH ICE WATER PROVIDED. URINAL EMPTIED. VITAL SIGNS TAKEN AND ARE STABLE. PATIENT WITHOUT FURTHER NEEDS AND STATES HE'S "GOING TO TRY AND GO BACK TO SLEEP NOW". CALL LIGHT AND PERSONAL BELONGINGS ARE WITHIN REACH.
[2025-05-21 04:58] VITALS: BP 111/57
[2025-05-21 04:59] VITALS: BP 111/57
--- NOTE | 2025-05-21 06:16 | NUR ---
PATIENT RESTING IN BED ON HIS BACK WITH HIS EYES CLOSED. EVEN AND UNLABORED RESPIRATIONS NOTED. CALL LIGHT AND PERSONAL BELONGINGS ARE WITHIN REACH.
[2025-05-21 07:39] VITALS: BP 111/57
--- NOTE | 2025-05-21 07:47 | NUR ---
MORNING ASSESSMENT IS COMPLETE. PATIENT IS RESTING IN BED, ROOM AIR, NO NEEDS. BLOOD GLUCOSE IS 193. LUNGS ARE CLEAR, SLIGHTLY DIM IN BASES. PATIENT DOES NOT WANT TO GET UP IN CHAIR UNTIL BREAKFAST ARRIVES. PATIENT IS LOOKING FORWARD TO GOING TO [facility] FOR PHYSICAL THERAPY TODAY.
--- NOTE | 2025-05-21 08:03 | NUR ---
ALERT AND ORIENTED IN BED. IMM LETTER DISCUSSED WITH PATIENT. DISCUSSED DC TO [facility] TODAY. VERBALIZES HE IS READY TO GO BUT WILL NEED A RIDE IN THE WHEELCHAIR VAN. ATTEMPT TO CONTACT [facility] FOR ADMISSION TIME. NO ANSWER. ATTEMPT TO CONTACT [facility], NO ANSWER.
--- NOTE | 2025-05-21 08:04 | NUR ---
PATIENT IS UP TO CHAIR FOR BREAKFAST WITH SBA AND FWW. CHAIR ALARM IS ON. 3UNITS OF INSULIN GIVEN TO LEFT LOWER ABDOMEN FOR BG OF 193. CALL LIGHT IS WITHIN REACH. NO OTHER NEEDS AT THIS TIME.
[2025-05-21 09:13] VITALS: BP 118/90
--- NOTE | 2025-05-21 09:22 | NUR ---
[facility] SCHEDULED FOR 13-13:30 TODAY TO TRANSPORT TO [facility] IN [place]. UPDATED PATIENT AND FRIEND,
--- NOTE | 2025-05-21 09:23 | NUR ---
PATIENT GIVEN MORNING MEDICATIONS, REFUSED MIRALAX DUE TO SEVERAL BM'S YESTERDAY. LEFT ARM IV REMOVED WITH CATHETER INTACT.
--- NOTE | 2025-05-21 09:33 | NUR ---
SPOKE WITH PATIENT, STATES CAROLE, FRIEND CAN TAKE HIM. SPOKE WITH CAROLE, STATES SHE IS WILLING TO TAKE PATIENT TODAY AROUND 1300.
--- NOTE | 2025-05-21 10:12 | NUR ---
ATTEMPT TO CONTACT [facility] AGAIN TO UPDATE ON DC TIME. MESSAGE LEFT. ORDERS FAXED WITH DC SUMMARY, PASRR, PROG NOTES AND PT UPDATES.
--- NOTE | 2025-05-21 11:07 | NUR ---
PATIENT IS RESTING IN BED UNTIL LUNCH TIME.
--- NOTE | 2025-05-21 11:13 | NUR ---
REPORT CALLED TO DARYL ROBISON IN [place].
[2025-05-21 12:33] VITALS: BP 120/75
== END 2025-05-21 13:20 | DRG 871 ==
LOC: ED 08:28 → MS 13:55
PROVIDERS: Emergency Medicine; ADMIT Internal Medicine; ATTEND Internal Medicine
DX: A41.9 Sepsis, unspecified organism (principal); U07.1 COVID-19; E87.20 Acidosis, unspecified; K21.9 Gastro-esophageal reflux disease without esophagitis; E11.9 Type 2 diabetes mellitus without complications; Z66 Do not resuscitate; H91.92 Unspecified hearing loss, left ear; I10 Essential (primary) hypertension; R53.1 Weakness; M25.551 Pain in right hip; H53.50 Unspecified color vision deficiencies; Z87.891 Personal history of nicotine dependence; Z87.19 Personal history of other diseases of the digestive system; Z79.899 Other long term (current) drug therapy; Z79.84 Long term (current) use of oral hypoglycemic drugs
CPT/HCPCS: 36415; 70450; 71045; 73502; 80048; 80053; 81001; 83605; 83735; 85025; 87502; 93005; 93010; 94762; 97110; 97162; 97166; 97530; 97535; A9270; J1815; J2405; J7030; U0002